=== PATIENT | male | born 1935 | race Caucasian/White ===

== ENCOUNTER 2017-04-19 15:28 | Inpatient (IN) | payer MEDICARE ==
[~2017-04-19] VITALS: Ht 177.8 cm; Wt 64.9 kg
[2017-04-19 23:39] LABS: HEMATOCRIT 40.3 % (42.0-52.0); HEMOGLOBIN 13.6 gm/dL (14.0-18.0); MCH 30.8 pg (26.0-34.0); MCHC 33.7 g/dL (28.0-37.0); MCV 91.3 fL (80.0-100.0); MPV 7.9 fl. (7.2-11.1); RBC 4.42 mil/uL (4.50-6.00); WBC 18.2 thou/uL (4.0-11.0)
[2017-04-20] VITALS (7 sets, daily range): BP systolic 125–153; BP diastolic 70–94
[2017-04-20] LABS: ALBUMIN 2.7 g/dL (3.4-5.0); CALCIUM 8.7 mg/dL (8.5-10.1); CREATININE 1.1 mg/dL (0.6-1.3); MAGNESIUM 1.9 mg/dL (1.8-2.4); TOTAL BILIRUBIN 0.2 mg/dL (<0.1-1.0); TOTAL PROTEIN 5.8 g/dL (6.4-8.2)
[2017-04-20 02:52] LABS: APTT 23.9 Seconds (25.0-31.3); INR 1.2; PROTIME 11.7 Seconds (9.20-11.50)
[2017-04-20] MEDS ORDERED: NITROGLYCERIN0.4 MG SUBLING (03:57)
[2017-04-20] MEDS ORDERED: OMEPRAZOLE40 MG PO (03:58)
[2017-04-20] MEDS ORDERED: AZITHROMYCIN 2250 MG PO (04:01)
[2017-04-20] MEDS ORDERED: AMOX TR-K CLV1 EAC4 PO (04:02)
[2017-04-20] MEDS ORDERED: INCRUSE ELLI62.5 MCG INH (04:03)
[2017-04-20] MEDS ORDERED: LEVAQUIN 500 M500 M2 PO (04:04)
[2017-04-20] MEDS ORDERED: MEDROL DOSPAK21 TA1 PO (04:04)
[2017-04-20] MEDS ORDERED: PREDNISONE 10 M10 MG PO (04:04)
[2017-04-20] MEDS ORDERED: VITAMIN D3400 UNIT PO (04:07)
[2017-04-20] MEDS ORDERED: CARDIZEM CD240 MG PO (04:08)
[2017-04-20] MEDS ORDERED: PROSCAR 5MG TABL5 MG PO (04:08)
[2017-04-20] MEDS ORDERED: LOPRESSOR50 PO (04:09)
[2017-04-20] MEDS ORDERED: ZOCOR20 MG PO (04:12)
[2017-04-20] MEDS ORDERED: FLOMAX0.4 MG PO (04:12)
[2017-04-20] MEDS ORDERED: SPIRIVA INH (04:13)
[2017-04-20] MEDS ORDERED: ACCUNEB SO1.25 MG/1 INH ×2 (04:14→04:16)
[2017-04-20] MEDS ORDERED: ASPIR 8181 MG PO (04:16)
[2017-04-20] MEDS ORDERED: TESSALON PERLE100 MG PO (04:17)
[2017-04-20] MEDS ORDERED: PULMICORT0.5 MG/22 INH (04:22)
[2017-04-20] MEDS ORDERED: FLONASE 0.05%50 MCG NASAL (04:23)
[2017-04-20] MEDS ORDERED: LASIX 20 MG TAB20 MG PO (04:23)
[2017-04-20] MEDS ORDERED: IMDUR 30 MG TAB30 M1 PO (04:24)
[2017-04-20] MEDS ORDERED: MIRALAX17 GM PO (04:24)
[2017-04-20] MEDS ORDERED: AMBIEN 5 MG TABL5 M1 PO (04:26)
[2017-04-20] MEDS ORDERED: PHENERGAN 25 MG25 M1 PO (04:26)
[2017-04-21 03:38] VITALS: BP 123/74
[2017-04-21 05:02] LABS: HEMATOCRIT 38.5 % (42.0-52.0); MCH 31.4 pg (26.0-34.0); MCHC 33.7 g/dL (28.0-37.0); MCV 93.3 fL (80.0-100.0); MPV 7.8 fl. (7.2-11.1); RBC 4.13 mil/uL (4.50-6.00); RDW-CV 13.2 % (10.5-14.5); WBC 16.5 thou/uL (4.0-11.0)
[2017-04-21 05:06] LABS: CALCIUM 8.5 mg/dL (8.5-10.1); MAGNESIUM 1.8 mg/dL (1.8-2.4); POTASSIUM 3.5 mmol/L (3.5-5.1)
[2017-04-21 08:00] VITALS: BP 142/84
--- NOTE | 2017-04-21 08:42 | CON ---
[address] [address] CONSULTATION Name: MATTHIAS PRUITT Room: [address] IN .R.#: [id number] Admission: 04/19/17 Attend Phys: Margaret Salas Discharge: Date of : 35 Report #: [id number] THIS REPORT FOR: //name// CC: Doug Owens FAM unknown Jim Bahena MD [facility] Fred Pace HISTORY OF PRESENT ILLNESS: The patient is a very pleasant 81-year-old gentleman, recently seen as an outpatient in the Cardiology office. He was having chest pain with symptoms consistent for progressive/unstable angina. He was setup for an outpatient cardiac catheterization. In the interim, he has developed influenza A and pneumonia and been admitted to the hospital. Presently, he is having some chest pressure that is persistent and continuous likely related to his acute illness. He is not having any symptoms to suggest an ongoing angina at this time. He has chronic atrial fibrillation and is anticoagulated with Eliquis. He is having no bleeding problems related to his Eliquis. He has a history of chronic diastolic heart failure that appears well compensated. He is without other cardiac complaint at this time. PAST MEDICAL HISTORY: 1. Chronic atrial fibrillation. 2. Chronic anticoagulation. 3. BPH. 4. COPD. 5. Hypertension. 6. Obstructive sleep apnea. PAST SURGICAL HISTORY: 1. Cataract extraction. 2. Cholecystectomy. 3. Colon resection. 4. Tonsillectomy. 5. Ventral hernia repair. FAMILY HISTORY: Noncontributory. SOCIAL HISTORY: The patient quit smoking in 1984. He does not drink alcohol. REVIEW OF SYSTEMS: Positive for fever, cough productive of clear sputum, COPD, chest discomfort, shortness of breath, orthopnea, paroxysmal nocturnal dyspnea, near syncope, history of edema, type 2 diabetes mellitus. He wears glasses without acute visual loss. He has occasional epistaxis and wears dentures. A 14-point review of systems otherwise negative. PHYSICAL EXAMINATION: [place] [address] CONSULTATION Name: MATTHIAS PRUITT Room: [address]#: [id number] Admission: 04/19/17 Attend Phys: Margaret Salas Discharge: Date of : 35 Report #: [id number] VITAL SIGNS: Blood pressure 140/76, pulse is in the 110s presently. GENERAL: This is an acutely ill appearing elderly gentleman in no distress. Mood and affect appropriate. HEENT: The patient is wearing glasses. Extraocular muscles intact. Mucous membranes are moist. NECK: Shows no jugular venous distention. There are no carotid bruits. CHEST: Reveals diminished breath sounds, worse on the left than right. I do not appreciate expiratory wheezes. CARDIAC: Reveals an irregularly irregular rhythm that is somewhat tachycardic. I do not appreciate gallop. ABDOMEN: Reveals normal bowel sounds. The abdomen is soft and nontender. EXTREMITIES: Show no edema. SKIN: Warm and dry. LABORATORY DATA: A 12-lead EKG shows atrial fibrillation with rapid ventricular response rate. Labs are reviewed. Electrolytes within normal limits. BUN 28, creatinine 1.1, serum glucose 123. LFTs are within normal limits. White blood cell count 18.2, hemoglobin 13.6, platelet count 312,000. Troponin pending. Chest x-ray shows mild cardiomegaly, diffuse interstitial markings and left lower lobe atelectasis and/or pneumonia. IMPRESSION AND RECOMMENDATIONS: 1. Coronary artery disease by history. The patient will have cardiac catheterization once his pneumonia/influenza has resolved. At this time, continue current medical therapy. 2. Chronic atrial fibrillation. Continue anticoagulation with Eliquis. We will continue low-dose beta blockers for rate control. 3. Chronic diastolic heart failure, presently appears well compensated. 4. Hypertension. Blood pressure adequately controlled. 5. Influenza A. Per primary physician. 6. Pneumonia. Per primary physician. <ELECTRONICALLY SIGNED> By: Richard Metzger MD, FACC 04/21/17 0842 1058 1940Richard Metzger MD, FACC /nt
[2017-04-21 12:41] VITALS: BP 135/74
[2017-04-21 16:17] VITALS: BP 128/75
[2017-04-21 17:51] LABS: URINE BILIRUBIN NEGATIVE (Negative); URINE BLOOD TRACE (Negative); URINE CLARITY CLEAR; URINE COLOR YELLOW; URINE GLUCOSE-RANDOM NEGATIVE (Negative); URINE KETONES NEGATIVE (Negative); URINE LEUKOCYTES-REFLEX NEGATIVE (Negative); URINE NITRITE-REFLEX NEGATIVE (Negative); URINE PROTEIN NEGATIVE (Negative); URINE UROBILINOGEN 0.2 E.U./dl (0.2-1.0)
[2017-04-21 20:00] VITALS: BP 126/68
[2017-04-21 23:43] VITALS: BP 126/79
[2017-04-22 03:50] VITALS: BP 119/64
[2017-04-22 08:00] VITALS: BP 121/97
[2017-04-22 11:30] VITALS: BP 177/66
[2017-04-22 15:30] VITALS: BP 109/60
[2017-04-22 20:00] VITALS: BP 114/67
[2017-04-23] VITALS: BP 135/77
[2017-04-23 04:23] VITALS: BP 128/78
[2017-04-23 04:49] LABS: HEMATOCRIT 39.1 % (42.0-52.0); HEMOGLOBIN 13.5 gm/dL (14.0-18.0); MCH 31.7 pg (26.0-34.0); MCHC 34.6 g/dL (28.0-37.0); MCV 91.7 fL (80.0-100.0); MPV 7.8 fl. (7.2-11.1); RBC 4.27 mil/uL (4.50-6.00); RDW-CV 13.3 % (10.5-14.5); WBC 10.3 thou/uL (4.0-11.0)
[2017-04-23 04:55] LABS: CALCIUM 8.7 mg/dL (8.5-10.1); CREATININE 1.1 mg/dL (0.6-1.3); MAGNESIUM 1.9 mg/dL (1.8-2.4); POTASSIUM 4.2 mmol/L (3.5-5.1)
[2017-04-23 08:55] VITALS: BP 112/57; BP 147/80
[2017-04-23 11:30] VITALS: BP 131/65
[2017-04-23 15:30] VITALS: BP 110/57
[2017-04-23 20:00] VITALS: BP 138/64
[2017-04-24] VITALS: BP 124/79
[2017-04-24 04:00] VITALS: BP 120/76
[2017-04-24 09:00] VITALS: BP 137/78
[2017-04-24] MEDS ORDERED: CEFUROXIME500 MG PO (09:00)
[2017-04-24] MEDS ORDERED: PREDNISONE 10 M10 MG PO (09:00)
[2017-04-24 13:11] VITALS: BP 137/78
[2017-04-24] MEDS ORDERED: XANAX 0.5 MG0.5 MG PO (13:32)
== END 2017-04-24 15:33 | disposition home or self-care (01) | DRG 871 ==
LOC: M.ICU 15:28 → M.2W 22:06 → M.ICU 22:06 → M.2W 04-20 16:12
PROVIDERS: Internal Medicine; ADMIT Internal Medicine
DX: A41.9 Sepsis, unspecified organism (principal); J10.08 Influenza due to other identified influenza virus with other specified pneumonia; J15.9 Unspecified bacterial pneumonia; J96.21 Acute and chronic respiratory failure with hypoxia; I25.110 Atherosclerotic heart disease of native coronary artery with unstable angina pectoris; I50.32 Chronic diastolic (congestive) heart failure; I13.0 Hypertensive heart and chronic kidney disease with heart failure and stage 1 through stage 4 chronic kidney disease, or unspecified chronic kidney disease; N18.3 Chronic kidney disease, stage 3 (moderate); I48.2 Chronic atrial fibrillation; N40.0 Benign prostatic hyperplasia without lower urinary tract symptoms; F41.9 Anxiety disorder, unspecified; G47.33 Obstructive sleep apnea (adult) (pediatric); J44.9 Chronic obstructive pulmonary disease, unspecified; Z87.891 Personal history of nicotine dependence; Z90.49 Acquired absence of other specified parts of digestive tract; Z98.49 Cataract extraction status, unspecified eye; Z79.01 Long term (current) use of anticoagulants; Z79.899 Other long term (current) drug therapy; Z28.21 Immunization not carried out because of patient refusal

== ENCOUNTER → 2017-05-04 | Outpatient (CLI) | payer MEDICARE, OTHER ==
[2017-05-04] VITALS (8 sets, daily range): BP systolic 92–128; BP diastolic 46–72
[~2017-05-04] VITALS: Ht 177.8 cm; Wt 65.8 kg
[~2017-05-04] MED LIST: ACCUNEB SO1.25 MG/1 INH; AMBIEN 5 MG TABL5 M1 PO; AMOX TR-K CLV1 EAC4 PO; ASPIR 8181 MG PO; AZITHROMYCIN 2250 MG PO; CARDIZEM CD240 MG PO; CEFUROXIME500 MG PO; FLOMAX0.4 MG PO; FLONASE 0.05%50 MCG NASAL; IMDUR 30 MG TAB30 M1 PO; INCRUSE ELLI62.5 MCG INH; LASIX 20 MG TAB20 MG PO; LEVAQUIN 500 M500 M2 PO; LOPRESSOR50 PO; MEDROL DOSPAK21 TA1 PO; MIRALAX17 GM PO; NITROGLYCERIN0.4 MG SUBLING; OMEPRAZOLE40 MG PO; PHENERGAN 25 MG25 M1 PO; PREDNISONE 10 M10 MG PO; PROSCAR 5MG TABL5 MG PO; PULMICORT0.5 MG/22 INH; SPIRIVA INH; TESSALON PERLE100 MG PO; VITAMIN D3400 UNIT PO; XANAX 0.5 MG0.5 MG PO; ZOCOR20 MG PO
[2017-05-04 09:50] LABS: HEMATOCRIT 44.7 % (42.0-52.0); HEMOGLOBIN 14.9 gm/dL (14.0-18.0); MCH 31.7 pg (26.0-34.0); MCHC 33.4 g/dL (28.0-37.0); MPV 7.9 fl. (7.2-11.1); RBC 4.71 mil/uL (4.50-6.00); RDW-CV 14.3 % (10.5-14.5)
[2017-05-04 10:01] LABS: ANION GAP 4 mmol/L (7-16); BUN 44 mg/dL (7-18); CALCIUM 8.2 mg/dL (8.5-10.1); CHLORIDE 104 mmol/L (98-107); CO2 34 mmol/L (21-32); CREATININE 1.2 mg/dL (0.6-1.3); GLUCOSE 92 mg/dL (70-99); POTASSIUM 4.1 mmol/L (3.5-5.1); SODIUM 142 mmol/L (136-145)
[2017-05-04 10:03] LABS: APTT 20.4 Seconds (25.0-31.3); INR 1.2; PROTIME 11.2 Seconds (9.20-11.50)
[2017-05-04 10:06] LABS: ALBUMIN 2.7 g/dL (3.4-5.0); ALKALINE PHOSPHATASE 56 U/L (46-116); CHOLESTEROL 156 mg/dL (<200); HDL CHOLESTEROL 67 mg/dL (>40); LDL CHOLESTEROL 77 mg/dL (<100); SERUM ASSESSMENT Clear; SGOT 21 U/L (15-37); SGPT 48 U/L (30-65); TC:HDL 2.3 Ratio (Not establshd); TOTAL BILIRUBIN 0.5 mg/dL (<0.1-1.0); TOTAL PROTEIN 5.6 g/dL (6.4-8.2); TRIGLYCERIDE 62 mg/dL (<150); VLDL 12 mg/dL (<40)
--- NOTE | 2017-05-04 13:12 | EKG ---
[place] [address] ELECTROCARDIOGRAM REPORT Name: MATTHIAS PRUITT Room: [facility]#: [id number] Admission: 05/04/17 Attend Phys: Judah Bahena MD Discharge: Date of : 35 Report #: [id number] THIS REPORT FOR: //name// [facility] Test Date: 2017-05-04 Test Time: 09:38:53 Pat Name: MATTHIAS PRUITT Department: Room: Gender: M Life [employer]: 27 : 1935 Requested By: Doug Owens Order Number: [id number] Reading MD: Doug Owens Measurements Intervals Randle Rate: 80 P: CO: QRS: 14 QRSD: 77 T: 45 QT: 348 QTc: 402 Interpretive Statements Atrial fibrillation Ventricular bigeminy Low voltage, extremity leads Probable anteroseptal infarct, old No previous ECG available for comparison Electronically Signed On 05-04-2017 13:12:30 [employer]IR[employer] by Doug Owens [email or web address] <ELECTRONICALLY SIGNED> By: Doug Owens MD, [facility] 05/04/17 1312 0938 09 Doug Owens MD, FACC /EPI
--- NOTE | 2017-05-05 11:18 | CARD ---
[address] [address] CARDIAC CATH REPORT Name: MATTHIAS PRUITT Room: [facility] JESUS ALBERTO JuliusRichyTha#: [id number] Admission: 05/04/17 Attend Phys: Judah Bahena MD Discharge: Date of : 35 Report #: [id number] THIS REPORT FOR: //name// APPROVED REPORT Patient Details Patient Status: Out-Patient Room #: The patient is a 81 year-old male Event Personnel Doug Owens Motor Tester, Megha Chamberlain RN Plan Rep, Marshall Lara (R) Monitor, Magaly Boone Scrub Procedures Performed Left Heart Cath w/or w/o Coronaries Indication Positive stress test, Chest pain Risk Factors Tobacco History () Procedure Narrative The patient was brought electively to the Cardiac Catheterization Laboratory and was prepped and draped in a sterile manner. The right femoral was infiltrated with 1% Lidocaine subcutaneous anesthesia. A 6fr Ultimum Sheath sheath was inserted into the Right Femoral Artery. Coronary angiography was performed using coronary diagnostic catheters. The right coronary system was accessed and visualized with a Diagnostic JR4 catheter. The left coronary system was accessed and visualized with a Diagnostic JL4 catheter. The left ventricle was accessed and visualized with a Diagnostic Angled Pig catheter. Left ventricular/Aortic Valve gradient assessed via catheter pullback. Left ventriculogram was performed in JESSICA projection. Closure device was deployed with a 6 Fr Mynx. The patient tolerated the procedure well and there were no complications associated with the procedure. There was no hematoma. Intraoperative Conscious Sedation Sedation start time: 11:45 Case end Time: 12:02 Versed 2 mg Fluoro Time: 1.0 minutes Dose: DAP 18011 cGycm2 252 [place] [address] CARDIAC CATH REPORT Name: MATTHIAS PRUITT Room: [facility]#: [id number] Admission: 05/04/17 Attend Phys: Judah Bahena MD Discharge: Date of : 35 Report #: [id number] Contrast Type and Amount: Omnipaque 105 ml Coronary Angiography The patient's coronary anatomy is right dominant. [place] Artery Percent Stenosis Left Main: 0 % Prox LAD: 0 % Mid/Distal LAD: 0 % Circumflex: 0 % RCA: 0 % Ramus: % Left Ventriculography The left ventricle is normal in size with normal contractility. The left ventricular ejection fraction is estimated to be 60-65%. Left ventricular wall motion abnormalities are not present. There is 1+ mitral insufficiency. Hemodynamics The aortic pressure is 99/51 mmHg with a mean of 72 mmHg. The left ventricular end diastolic pressure is 10 mmHg. There was no gradient across the aortic valve upon pullback. Pullback from the left ventricle to the aorta revealed no gradient across the aortic valve. Conclusion 1. Normal coronary arteries 2. suspect noncardiac chest pain Recommendations Aggressive Medical Therapy <ELECTRONICALLY SIGNED> By: Doug Owens MD, FACC 05/05/17 1118 1118 [id number] Owens MD, FAC /INF
== END | disposition home or self-care (01) ==
LOC: M.CL 08:49
PROVIDERS: Internal Medicine Cardiovascular Disease
DX: R07.9 Chest pain, unspecified (principal); Z87.891 Personal history of nicotine dependence; J44.9 Chronic obstructive pulmonary disease, unspecified; I11.0 Hypertensive heart disease with heart failure; I50.30 Unspecified diastolic (congestive) heart failure; G47.33 Obstructive sleep apnea (adult) (pediatric); Z90.49 Acquired absence of other specified parts of digestive tract; Z98.890 Other specified postprocedural states